=== PATIENT | male | born 1965 | race Caucasian/White ===

== ENCOUNTER 2020-03-17 22:24 | Emergency (ER) | payer BC ==
[~2020-03-17] VITALS: Ht 165.1 cm; Wt 90.9 kg
[~2020-03-17 22:24] MED LIST: HYDR25TA4 PO; MECL-159 PO; METO-467 PO; METO50TA17 PO; NAPR500T6 PO; ONDA4TAB12 PO; OXYC-150 PO
[2020-03-17 22:28] VITALS: BP 180/97
[2020-03-17] MEDS ORDERED: oxyCODONE IR 5mg (immed. release) tablet PO ONE (22:50)
[2020-03-17] MEDS ORDERED: amox tr/potassium clavulanate 875/125mg TAB PO ONE (22:50)
[2020-03-17] MEDS ORDERED: ibuprofen tablet 400 MG TABLET PO ONE (22:50)
[2020-03-17] MEDS ORDERED: IBUP-1984 PO (23:12)
[2020-03-17] MEDS ORDERED: AMOX-422 PO (23:12)
== END 2020-03-17 23:32 | disposition home or self-care (01) ==
LOC: ER 22:24
DX: S51.812A Laceration without foreign body of left forearm, initial encounter (principal); R20.2 Paresthesia of skin; E78.00 Pure hypercholesterolemia, unspecified; G89.29 Other chronic pain; I10 Essential (primary) hypertension; Z86.73 Personal history of transient ischemic attack (TIA), and cerebral infarction without residual deficits; Z72.89 Other problems related to lifestyle; Z88.5 Allergy status to narcotic agent; Z88.8 Allergy status to other drugs, medicaments and biological substances; Z79.899 Other long term (current) drug therapy; W54.0XXA Bitten by dog, initial encounter; Y93.89 Activity, other specified; Y92.89 Other specified places as the place of occurrence of the external cause; Y99.8 Other external cause status
CPT/HCPCS: 73090; 99283; 99284